=== PATIENT | female | born 1930 | race Caucasian/White ===

== ENCOUNTER 2017-01-14 06:12 | Day surgery (SDC) | payer MEDICARE ==
--- NOTE | ~2017-01-14 | EGD ---
EGD REPORT [facility] [address] 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 Estimated blood loss: None. Procedure: Pre-Anesthesia Assessment: - ASA Grade Assessment: II - A patient with mild systemic disease. After obtaining informed consent, the endoscope was passed under direct vision. Throughout the procedure, the patient's blood pressure, pulse, and oxygen saturations were monitored continuously. The GIF [id number] was introduced through the mouth, and advanced to the second part of duodenum. The Endoscope was introduced through the mouth, and advanced to the second part of duodenum. Findings: Endoscopic Finding : The examined esophagus was endoscopically normal. The entire examined stomach was endoscopically normal. The cardia and gastric fundus were normal on retroflexion. A single small nodule with a localized distribution was found in the duodenal bulb. The exam of the duodenum was otherwise normal. 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 The lesion was anechoic. Endosonographically, the lesion appeared to originate from within the deep mucosa (Layer 2). The lesion measured 11 mm (in maximum thickness). The outer margins were well defined. There was sonographic evidence suggesting invasion into the deep mucosa (Layer 2). There was dilation in the common bile duct which measured up to 10 mm. The pancreatic duct had a normal endosonographic appearance in the entire pancreas. The pancreatic duct measured up to 2 mm in diameter. There was no sign of significant endosonographic abnormality in the ampulla. No lymphadenopathy seen. EGD REPORT [facility] [place] [id number] [place]. [address] NAME: CHEVY HARRINGTON : [birth year] STATUS : REG [facility] [place] PAT#: [id number] AGE: 86 ADM/REG DATE : 01/14/17 MR#: [id number] REPORT SERV DATE: 01/14/17 DICTATED BY: BARON AGUILAR DATE: 01/14/17 REPORT STATUS : Draft TRANSCRIBED BY: [employer] DATE: 01/14/17 Impression: - Normal esophagus. - Normal stomach. - Nodule found in the duodenum. - An intramural (subepithelial) lesion was found in the duodenal bulb. The lesion appeared to originate from within the deep mucosa (Layer 2). - There was dilation in the common bile duct which measured up to 10 mm. - The pancreatic duct had a normal endosonographic appearance in the entire pancreas. The pancreatic duct measured up to 2 mm in diameter. - There was no sign of significant pathology in the ampulla. Recommendation: - Return to previous diet. - Continue present medications. - Return to referring physician. Given there was no changes in size of lesion would not follow further. Procedure Code(s): --- Professional --- 82701, Esophagogastroduodenoscopy, flexible, transoral; with endoscopic ultrasound examination, including the esophagus, stomach, and either the duodenum or a surgically altered stomach where the jejunum is examined distal to the anastomosis Diagnosis Code(s): --- Professional --- K31.9, Disease of stomach and duodenum, unspecified K31.89, Other diseases of stomach and duodenum K83.8, Other specified diseases of biliary tract CPT copyright 2013 [employer]. All rights reserved. The codes documented in this report are preliminary and upon quality systems specialist review may be revised to meet current compliance requirements. BARON AGUILAR, 01/14/2017 8:21 AM Number of Addenda: 0 Note Initiated On: 01/14/2017 7:54 AM Scope Withdrawal Time 0 hours 0 minutes 0 seconds [id number] [place] [address]
[~2017-01-14 06:12] MED LIST: DESONIDE TOP; EPIPEN0.3 IM; FLEXI JOIN1; INJECTION; MACRODANTIN PO; MONUROL PO; MULTIVIT/MIN PO; NORV5 PO; OS500+D PO; PROBIOTIC PO; PROTONIX20 MG PO; PVC; PVC V; V2 PO
== END 2017-01-14 23:59 | disposition home or self-care (01) ==
LOC: DMU 06:12
PROVIDERS: Internal Medicine Gastroenterology
PROC: BD41ZZZ Ultrasonography of Esophagus (ICD-10-PCS; 2017-01-14)
PROC: 0DJ08ZZ Inspection of Upper Intestinal Tract, Via Natural or Artificial Opening Endoscopic (ICD-10-PCS; principal; 2017-01-14 08:00)
DX: K31.89 Other diseases of stomach and duodenum (principal); K83.8 Other specified diseases of biliary tract; I10 Essential (primary) hypertension; F41.9 Anxiety disorder, unspecified; Z88.0 Allergy status to penicillin; Z88.1 Allergy status to other antibiotic agents; Z88.5 Allergy status to narcotic agent; Z88.6 Allergy status to analgesic agent; Z88.2 Allergy status to sulfonamides; Z96.641 Presence of right artificial hip joint; Z90.710 Acquired absence of both cervix and uterus; Z98.890 Other specified postprocedural states
CPT/HCPCS: C1725